=== PATIENT | female | born 1960 | race Caucasian/White ===

== ENCOUNTER 2020-02-23 15:06 | Outpatient (CLI) | payer OTHER, SELFPAY ==
--- NOTE | ~2020-02-23 | MR_ITS ---
EXAMINATION: MR brain/brain stem wo/w con DATE: 02/23/2020 16:11 INDICATION: Non-small cell cancer of right lung. TECHNIQUE: Magnetic resonance imaging (MRI) of the brain and brainstem was performed without and with 9 mL MultiHance intravenous contrast. Sequences included sagittal and axial T1-weighted FSE, axial d iffusion-weighted FS EPI, axial T2*-weighted GRE, axial T2-weighted FLAIR Propeller, and axial T2-alta ghted Propeller. Postcontrast sequences included axial, sagittal, and coronal T1-weighted FSE. Appare nt diffusion coefficient (ADC) maps were created. COMPARISON: None. FINDINGS: There is a punctate focus of increased T2-weighted signal intensity in the left cerebral wh ite matter, which is normal as an isolated finding. There is no intracranial hemorrhage, acute infarc tion, or abnormal intracranial mass lesion. The ventricles are normal in size. The paranasal sinuses are clear. The orbits are normal. The mastoid air cells are normal. IMPRESSION: 1. Normal brain. Reviewed, dictated and finalized at location B. IMPRESSION: 1. Normal brain.
[2020-02-23 15:41] LABS: Estimated Glomerular Filt Rate > 60
== END 2020-02-23 15:07 | disposition home or self-care (01) ==
PROVIDERS: PCP Nurse Practitioner; Visit Provider Internal Medicine Medical Oncology
DX: C34.91 Malignant neoplasm of unspecified part of right bronchus or lung (principal)
CPT/HCPCS: 70553; A9577